=== PATIENT | male | born 1960 | race Caucasian/White ===

== ENCOUNTER 2016-10-03 17:33 | Inpatient (IN) | payer MEDICAID ==
[~2016-10-03] VITALS: Ht 190.5 cm; Wt 106.5 kg
[~2016-10-03 17:33] MED LIST: ATEN-60 PO; BENA5TAB14 PO; GLIP-116; INSLISPI SC; LISI-206; METFORMIN 500MG TABLETS; PROVASTATIN; [UNRECOGNIZED DRUG - CODE] PO; [UNRECOGNIZED DRUG - CODE] TD
[2016-10-03] MEDS ORDERED: VANCOMYCIN 1GM/250ML D5W 250 ML IV ONE (22:15)
[2016-10-03] MEDS ORDERED: cefTRIAXone 1GM/50ML D5W 50 ML IV ONE (22:15)
[2016-10-03] MEDS ORDERED: ACETAMINOPHEN 325 MG TAB PO ONE (22:15)
[2016-10-03] MEDS ORDERED: HYDROmorphone HCL 2 MG/ML VL IV ONE (22:15)
[2016-10-03] MEDS ORDERED: ONDANSETRON HCL 4 MG/2 ML VIAL IV ONE (22:15)
[2016-10-03 23:16] LABS: Basophils # (auto) 0 uL; Basophils % (auto) 0.2 % (0.0-2.0); Eosinophils # (auto) 0 uL; Eosinophils % (auto) 0.1 % (0.0-7.0); Hematocrit 44.7 % (41.0-53.0); Hemoglobin 14.9 g/dL (13.5-17.5); Lymphocytes # (auto) 1.2 uL; Mean Corpuscular Hemoglobin 28.9 pg (28.0-32.0); Mean Corpuscular Hgb Conc. 33.3 g/dL (32.0-36.0); Mean Corpuscular Volume 86.8 fL (80.0-100.0); Mean Platelet Volume 8.8 fL (7.4-10.4); Monocytes # (auto) 0.9 uL; Monocytes % (auto) 7.5 % (0.0-12.0); Neutrophils % (auto) 82.2 % (37.0-80.0); Platelet Count (auto) 199 10^3/uL (140-450); Red Cell Distribution Width 13.4 % (11.6-16.0); White Blood Cell 12.2 10^3/uL (4.4-10.8)
[2016-10-03] MEDS ORDERED: PRAV20TA3 PO (23:19)
[2016-10-03] MEDS ORDERED: TERA10CA36 PO (23:19)
[2016-10-03 23:20] LABS: Albumin 3.3 g/dL (3.4-5.0); BUN/Creatinine Ratio 13.4; Calcium 8.7 mg/dL (8.5-10.1); Potassium 4.6 mmol/L (3.5-5.1)
[2016-10-03 23:23] LABS: Bilirubin, Total 0.6 mg/dL (0.2-1.0); Total Protein 7.8 g/dL (6.4-8.2)
[2016-10-04] VITALS (7 sets, daily range): BP systolic 106–119; BP diastolic 58–75
[2016-10-04] MEDS ORDERED: DEXTROSE (50%) 50ML SYRG IV PRN (01:30)
[2016-10-04] MEDS ORDERED: HYDROcodone-ACET 5/325MG TAB PO PRN (01:30)
[2016-10-04] MEDS ORDERED: MORPHINE SULF INJ 2 MG/ML SYRINGE 1ML IV PRN (01:30)
[2016-10-04] MEDS ORDERED: ONDANSETRON HCL 4 MG/2 ML VIAL IV PRN (01:30)
[2016-10-04] MEDS: ACCU-CHEK COMFORT CURVE STRIP VI SCH ×3 (06:00→18:00)
[2016-10-04] MEDS ORDERED: ATEN-60 PO (06:43)
[2016-10-04] MEDS ORDERED: LISI10TA6 PO (06:43)
[2016-10-04] MEDS: InsuLIN REG 1unit/0.01ml Soln (100units/ml) SC SCH ×3 (07:36→19:31)
[2016-10-04 09:23] LABS: Albumin 2.7 g/dL (3.4-5.0); BUN/Creatinine Ratio 18.8; Bilirubin, Total 0.6 mg/dL (0.2-1.0); Calcium 8.1 mg/dL (8.5-10.1); Potassium 3.6 mmol/L (3.5-5.1); Total Protein 6.3 g/dL (6.4-8.2)
[2016-10-04] MEDS: ASPirin 325 MG TAB PO SCH (09:38)
[2016-10-04] MEDS: ENOXAPARIN SOD 40 MG/0.4 ML SYRINGE SC SCH (09:39)
[2016-10-04] MEDS: FAMOTIDINE 20 MG TAB PO SCH ×2 (09:42→21:39)
[2016-10-04] MEDS: ATENOLOL 25 MG TAB PO SCH (09:45)
[2016-10-04] MEDS: LISINOPRIL 10 MG TAB PO SCH (09:46)
[2016-10-04] MEDS ORDERED: VANCOMYCIN PER PHARMACY 0 MG IV SCH (12:00)
[2016-10-04] MEDS: VANCOMYCIN 1,250 MG in D5W 5% 250 ML IV SCH ×2 (12:35→23:37)
[2016-10-04] MEDS: HYDROmorphone HCL 2 MG/ML VL IV PRN (19:50)
[2016-10-04 19:54] LABS: INR 1.25 (0.9-1.15); Prothrombin Time 12.9 sec (9.37-12.3)
[2016-10-04] MEDS: cefTRIAXone 1GM/50ML D5W 50 ML IV SCH (21:37)
[2016-10-04] MEDS: PRAVASTATIN SODIUM 20 MG TAB PO SCH (21:38)
[2016-10-04] MEDS: TERAZOSIN HCL 5 MG CAP PO SCH (21:38)
[2016-10-05] MEDS: TEMAZEPAM 15 MG CAP PO PRN ×2 (00:16→21:22)
[2016-10-05] MEDS: InsuLIN REG 1unit/0.01ml Soln (100units/ml) SC SCH ×4 (00:41→18:17)
[2016-10-05 02:09] VITALS: BP 107/58
[2016-10-05] MEDS: ACCU-CHEK COMFORT CURVE STRIP VI SCH ×4 (05:39→18:17)
[2016-10-05] MEDS: ASPirin 325 MG TAB PO SCH (10:00)
[2016-10-05] MEDS: ENOXAPARIN SOD 40 MG/0.4 ML SYRINGE SC SCH (10:00)
[2016-10-05] MEDS: ATENOLOL 25 MG TAB PO SCH (10:00)
[2016-10-05] MEDS: LISINOPRIL 10 MG TAB PO SCH (10:00)
[2016-10-05] MEDS: FAMOTIDINE 20 MG TAB PO SCH ×2 (10:00→21:19)
[2016-10-05] MEDS ORDERED: BUPIVACAINE 0.75% INJ 10ML MPV SDV IJ ONE (11:55)
[2016-10-05] MEDS: VANCOMYCIN 1,250 MG in D5W 5% 250 ML IV SCH ×2 (12:00→23:33)
[2016-10-05] MEDS ORDERED: ceFAZolin 1GM/50ML D5W 50 ML IV ONE (12:37)
[2016-10-05] MEDS ORDERED: ceFAZolin 1GM VL ONE (13:21)
[2016-10-05] MEDS ORDERED: ROPIVACAINE 0.5% (5MG/ML) 20ML AMPULE IJ ONE (13:22)
[2016-10-05] MEDS ORDERED: fentaNYL CITRATE 100 MCG/2 ML VL ONE (13:24)
[2016-10-05] MEDS ORDERED: PROPOFOL 10 MG/ML 20 ML IV ONE (13:24)
[2016-10-05] MEDS ORDERED: MIDAZOLAM HCL 1MG/1ML-2 ML VIAL ONE (13:24)
[2016-10-05] MEDS ORDERED: HYDROmorphone HCL 2 MG/ML VL IV PRN (14:15)
[2016-10-05] MEDS ORDERED: ePHEDrine SULFATE 50 MG/ML AMP IV PRN (14:15)
[2016-10-05] MEDS ORDERED: hydrALAZINE HCL 20 MG/ML VL IV PRN (14:15)
[2016-10-05] MEDS ORDERED: ONDANSETRON HCL 4 MG/2 ML VIAL IV ONE (14:15)
[2016-10-05 15:58] LABS: Basophils # (auto) 0 uL; Basophils % (auto) 0.3 % (0.0-2.0); Eosinophils # (auto) 0.1 uL; Eosinophils % (auto) 0.9 % (0.0-7.0); Hematocrit 41.6 % (41.0-53.0); Lymphocytes # (auto) 1.9 uL; Lymphocytes % (auto) 18.1 % (10.0-50.0); Mean Corpuscular Hemoglobin 28.9 pg (28.0-32.0); Mean Corpuscular Hgb Conc. 33.6 g/dL (32.0-36.0); Mean Platelet Volume 8.5 fL (7.4-10.4); Monocytes # (auto) 1.1 uL; Monocytes % (auto) 10.1 % (0.0-12.0); Neutrophils # (auto) 7.5 uL; Neutrophils % (auto) 70.6 % (37.0-80.0); Platelet Count (auto) 202 10^3/uL (140-450); Red Cell Distribution Width 13.2 % (11.6-16.0); White Blood Cell 10.6 10^3/uL (4.4-10.8)
[2016-10-05 16:20] LABS: Partial Thromboplastin Time 28.5 sec (22.64-33.71)
[2016-10-05 16:36] LABS: INR 1.27 (0.9-1.15); Prothrombin Time 13.1 sec (9.37-12.3)
[2016-10-05 16:42] LABS: Potassium 4.4 mmol/L (3.5-5.1)
[2016-10-05 16:44] LABS: Albumin 2.7 g/dL (3.4-5.0); BUN/Creatinine Ratio 14.3; Bilirubin, Total 0.5 mg/dL (0.2-1.0); Calcium 8.1 mg/dL (8.5-10.1); Total Protein 6.8 g/dL (6.4-8.2)
[2016-10-05 17:06] VITALS: BP 110/66
[2016-10-05] MEDS: HYDROmorphone HCL 2 MG/ML VL IV PRN (20:27)
[2016-10-05] MEDS: PRAVASTATIN SODIUM 20 MG TAB PO SCH (21:19)
[2016-10-05] MEDS: cefTRIAXone 1GM/50ML D5W 50 ML IV SCH (21:19)
[2016-10-05] MEDS: TERAZOSIN HCL 5 MG CAP PO SCH (21:20)
[2016-10-05] MEDS: ACETAMINOPHEN 325 MG TAB PO PRN (21:20)
[2016-10-05 22:12] VITALS: BP 132/70
[2016-10-06] MEDS: InsuLIN REG 1unit/0.01ml Soln (100units/ml) SC SCH ×4 (00:34→18:18)
[2016-10-06] MEDS: ACCU-CHEK COMFORT CURVE STRIP VI SCH ×4 (00:35→17:59)
[2016-10-06 05:08] VITALS: BP 129/78
[2016-10-06 06:49] LABS: Basophils # (auto) 0 uL; Basophils % (auto) 0.3 % (0.0-2.0); Eosinophils # (auto) 0.2 uL; Eosinophils % (auto) 1.7 % (0.0-7.0); Hematocrit 41.2 % (41.0-53.0); Hemoglobin 13.7 g/dL (13.5-17.5); Lymphocytes # (auto) 2.3 uL; Lymphocytes % (auto) 23.9 % (10.0-50.0); Mean Corpuscular Hemoglobin 28.8 pg (28.0-32.0); Mean Corpuscular Hgb Conc. 33.3 g/dL (32.0-36.0); Mean Corpuscular Volume 86.6 fL (80.0-100.0); Mean Platelet Volume 8.9 fL (7.4-10.4); Monocytes # (auto) 1.2 uL; Monocytes % (auto) 12.3 % (0.0-12.0); Neutrophils # (auto) 5.9 uL; Neutrophils % (auto) 61.8 % (37.0-80.0); Platelet Count (auto) 202 10^3/uL (140-450); White Blood Cell 9.5 10^3/uL (4.4-10.8)
[2016-10-06 07:24] LABS: Albumin 2.5 g/dL (3.4-5.0); BUN/Creatinine Ratio 13.6; Calcium 8.1 mg/dL (8.5-10.1)
[2016-10-06 07:36] LABS: Bilirubin, Total 0.5 mg/dL (0.2-1.0); Total Protein 6.5 g/dL (6.4-8.2)
[2016-10-06 08:36] VITALS: BP 116/62
[2016-10-06] MEDS: ASPirin 325 MG TAB PO SCH (09:16)
[2016-10-06] MEDS: ATENOLOL 25 MG TAB PO SCH (09:34)
[2016-10-06] MEDS: LISINOPRIL 10 MG TAB PO SCH (09:34)
[2016-10-06] MEDS: FAMOTIDINE 20 MG TAB PO SCH ×2 (09:34→21:57)
[2016-10-06] MEDS: ENOXAPARIN SOD 40 MG/0.4 ML SYRINGE SC SCH ×2 (09:35→10:55)
[2016-10-06 11:19] VITALS: BP 165/89
[2016-10-06] MEDS: VANCOMYCIN 1,250 MG in D5W 5% 250 ML IV SCH (12:32)
[2016-10-06 16:18] VITALS: BP 131/77
[2016-10-06] MEDS: DOCUSATE SOD 100 MG CAP PO PRN (18:34)
[2016-10-06 21:26] VITALS: BP 144/79
[2016-10-06] MEDS: TERAZOSIN HCL 5 MG CAP PO SCH (21:56)
[2016-10-06] MEDS: TEMAZEPAM 15 MG CAP PO PRN (21:57)
[2016-10-06] MEDS: ACETAMINOPHEN 325 MG TAB PO PRN (21:57)
[2016-10-06] MEDS: cefTRIAXone 1GM/50ML D5W 50 ML IV SCH (21:57)
[2016-10-06] MEDS: PRAVASTATIN SODIUM 20 MG TAB PO SCH (21:57)
[2016-10-06] MEDS: INSULIN DETEMIR(LEVEMIR) 1unit/0.01ml Soln (100units/ml) SC SCH (22:12)
[2016-10-07] MEDS: InsuLIN REG 1unit/0.01ml Soln (100units/ml) SC SCH ×5 (00:48→23:31)
[2016-10-07] MEDS: VANCOMYCIN 1,250 MG in D5W 5% 250 ML IV SCH ×2 (02:39→16:54)
[2016-10-07] MEDS: ACCU-CHEK COMFORT CURVE STRIP VI SCH ×5 (06:25→23:25)
[2016-10-07 06:56] LABS: Calcium 8.2 mg/dL (8.5-10.1); Potassium 3.7 mmol/L (3.5-5.1)
[2016-10-07 06:57] LABS: BUN/Creatinine Ratio 18.1
[2016-10-07 08:00] VITALS: BP 109/60
[2016-10-07 09:13] VITALS: BP 109/60
[2016-10-07] MEDS: ASPirin 325 MG TAB PO SCH (09:41)
[2016-10-07] MEDS: FAMOTIDINE 20 MG TAB PO SCH ×2 (09:41→22:55)
[2016-10-07] MEDS: LISINOPRIL 10 MG TAB PO SCH (09:43)
[2016-10-07] MEDS: ATENOLOL 25 MG TAB PO SCH (09:44)
[2016-10-07] MEDS: ENOXAPARIN SOD 40 MG/0.4 ML SYRINGE SC SCH (09:44)
[2016-10-07 12:44] VITALS: BP 116/82
[2016-10-07 16:57] VITALS: BP 105/69
[2016-10-07 20:00] VITALS: BP 129/79
[2016-10-07 22:00] VITALS: BP 129/79
[2016-10-07] MEDS: cefTRIAXone 1GM/50ML D5W 50 ML IV SCH (22:55)
[2016-10-07] MEDS: TERAZOSIN HCL 5 MG CAP PO SCH (22:55)
[2016-10-07] MEDS: PRAVASTATIN SODIUM 20 MG TAB PO SCH (22:58)
[2016-10-07] MEDS: INSULIN DETEMIR(LEVEMIR) 1unit/0.01ml Soln (100units/ml) SC SCH (23:30)
[2016-10-08] MEDS: VANCOMYCIN 1,250 MG in D5W 5% 250 ML IV SCH ×2 (02:57→15:23)
[2016-10-08 05:01] VITALS: BP 96/63
[2016-10-08] MEDS: ACCU-CHEK COMFORT CURVE STRIP VI SCH ×4 (06:23→23:56)
[2016-10-08] MEDS: InsuLIN REG 1unit/0.01ml Soln (100units/ml) SC SCH ×4 (06:25→23:59)
[2016-10-08 07:08] LABS: Basophils # (auto) 0 uL; Basophils % (auto) 0.5 % (0.0-2.0); Eosinophils # (auto) 0.3 uL; Eosinophils % (auto) 3.2 % (0.0-7.0); Hematocrit 42.4 % (41.0-53.0); Hemoglobin 14.2 g/dL (13.5-17.5); Lymphocytes # (auto) 2.6 uL; Mean Corpuscular Hgb Conc. 33.4 g/dL (32.0-36.0); Mean Corpuscular Volume 86.6 fL (80.0-100.0); Mean Platelet Volume 8.4 fL (7.4-10.4); Monocytes # (auto) 0.9 uL; Monocytes % (auto) 10.8 % (0.0-12.0); Neutrophils # (auto) 4.8 uL; Neutrophils % (auto) 55.5 % (37.0-80.0); Platelet Count (auto) 217 10^3/uL (140-450); Red Cell Distribution Width 12.6 % (11.6-16.0); White Blood Cell 8.7 10^3/uL (4.4-10.8)
[2016-10-08 07:33] LABS: Albumin 2.6 g/dL (3.4-5.0); Bilirubin, Total 0.3 mg/dL (0.2-1.0); Total Protein 6.5 g/dL (6.4-8.2)
[2016-10-08 09:50] VITALS: BP 120/63
[2016-10-08] MEDS: FAMOTIDINE 20 MG TAB PO SCH ×2 (10:00→22:33)
[2016-10-08] MEDS: ASPirin 325 MG TAB PO SCH (10:22)
[2016-10-08] MEDS: ATENOLOL 25 MG TAB PO SCH (10:23)
[2016-10-08] MEDS: LISINOPRIL 10 MG TAB PO SCH (10:23)
[2016-10-08] MEDS: ENOXAPARIN SOD 40 MG/0.4 ML SYRINGE SC SCH (10:24)
[2016-10-08] MEDS: DOCUSATE SOD 100 MG CAP PO PRN (10:45)
[2016-10-08 14:47] VITALS: BP 99/53
[2016-10-08 17:19] VITALS: BP 129/78
[2016-10-08 21:30] VITALS: BP 156/76
[2016-10-08] MEDS: PRAVASTATIN SODIUM 20 MG TAB PO SCH (22:33)
[2016-10-08] MEDS: cefTRIAXone 1GM/50ML D5W 50 ML IV SCH (22:33)
[2016-10-08] MEDS: TERAZOSIN HCL 5 MG CAP PO SCH (22:34)
[2016-10-08] MEDS: INSULIN DETEMIR(LEVEMIR) 1unit/0.01ml Soln (100units/ml) SC SCH (22:35)
[2016-10-09] MEDS: VANCOMYCIN 1,250 MG in D5W 5% 250 ML IV SCH ×2 (03:06→18:01)
[2016-10-09 05:00] VITALS: BP 114/55
[2016-10-09] MEDS: InsuLIN REG 1unit/0.01ml Soln (100units/ml) SC SCH ×3 (06:18→18:17)
[2016-10-09] MEDS: ACCU-CHEK COMFORT CURVE STRIP VI SCH ×3 (06:18→18:17)
[2016-10-09 08:00] VITALS: BP 117/71
[2016-10-09 09:04] VITALS: BP 117/71
[2016-10-09] MEDS: FAMOTIDINE 20 MG TAB PO SCH ×2 (10:00→22:20)
[2016-10-09] MEDS: ASPirin 325 MG TAB PO SCH (14:43)
[2016-10-09] MEDS: LISINOPRIL 10 MG TAB PO SCH (14:43)
[2016-10-09] MEDS: ATENOLOL 25 MG TAB PO SCH (14:44)
[2016-10-09] MEDS: ENOXAPARIN SOD 40 MG/0.4 ML SYRINGE SC SCH (14:44)
[2016-10-09 16:50] VITALS: BP 127/80
[2016-10-09] MEDS: glipiZIDE 5 MG TAB PO SCH (17:55)
[2016-10-09 22:00] VITALS: BP 119/72
[2016-10-09] MEDS: TERAZOSIN HCL 5 MG CAP PO SCH (22:19)
[2016-10-09] MEDS: cefTRIAXone 1GM/50ML D5W 50 ML IV SCH (22:19)
[2016-10-09] MEDS: INSULIN DETEMIR(LEVEMIR) 1unit/0.01ml Soln (100units/ml) SC SCH (22:20)
[2016-10-09] MEDS: PRAVASTATIN SODIUM 20 MG TAB PO SCH (22:20)
[2016-10-10] MEDS: ACCU-CHEK COMFORT CURVE STRIP VI SCH ×3 (00:11→12:08)
[2016-10-10] MEDS: InsuLIN REG 1unit/0.01ml Soln (100units/ml) SC SCH ×3 (00:12→12:08)
[2016-10-10] MEDS: VANCOMYCIN 1,250 MG in D5W 5% 250 ML IV SCH (03:13)
[2016-10-10 05:00] VITALS: BP 112/59
[2016-10-10] MEDS: glipiZIDE 5 MG TAB PO SCH (06:00)
[2016-10-10 07:55] VITALS: BP 117/64
[2016-10-10 08:00] VITALS: BP 117/64
[2016-10-10] MEDS: FAMOTIDINE 20 MG TAB PO SCH (10:00)
[2016-10-10] MEDS: ATENOLOL 25 MG TAB PO SCH (10:20)
[2016-10-10] MEDS: ASPirin 325 MG TAB PO SCH (10:20)
[2016-10-10] MEDS: ENOXAPARIN SOD 40 MG/0.4 ML SYRINGE SC SCH (10:20)
[2016-10-10] MEDS: LISINOPRIL 10 MG TAB PO SCH (10:21)
[2016-10-10 10:48] LABS: Basophils # (auto) 0 uL; Basophils % (auto) 0.3 % (0.0-2.0); Eosinophils # (auto) 0.3 uL; Hematocrit 42.7 % (41.0-53.0); Hemoglobin 14.1 g/dL (13.5-17.5); Lymphocytes # (auto) 2.3 uL; Lymphocytes % (auto) 27.3 % (10.0-50.0); Mean Corpuscular Hemoglobin 28.7 pg (28.0-32.0); Mean Corpuscular Hgb Conc. 33.1 g/dL (32.0-36.0); Mean Corpuscular Volume 86.8 fL (80.0-100.0); Mean Platelet Volume 8.2 fL (7.4-10.4); Monocytes # (auto) 0.8 uL; Monocytes % (auto) 8.9 % (0.0-12.0); Neutrophils # (auto) 5.1 uL; Neutrophils % (auto) 60.5 % (37.0-80.0); Platelet Count (auto) 236 10^3/uL (140-450); Red Cell Distribution Width 12.7 % (11.6-16.0); White Blood Cell 8.4 10^3/uL (4.4-10.8)
[2016-10-10 11:15] LABS: Albumin 2.8 g/dL (3.4-5.0); BUN/Creatinine Ratio 16.5; Bilirubin, Total 0.4 mg/dL (0.2-1.0); Calcium 8.4 mg/dL (8.5-10.1); Potassium 4.5 mmol/L (3.5-5.1); Total Protein 6.8 g/dL (6.4-8.2)
[2016-10-10 11:54] VITALS: BP 125/69
[2016-10-10 13:50] VITALS: BP 117/64
== END 2016-10-10 17:10 | disposition home or self-care (01) | DRG 710 ==
LOC: ER 17:35 → EAST 17:36
PROVIDERS: ADMIT Nurse Practitioner; ATTEND Internal Medicine
PROC: 0HRNXK3 Replacement of Left Foot Skin with Nonautologous Tissue Substitute, Full Thickness, External Approach (ICD-10-PCS; 2016-10-05)
PROC: 0JBR0ZZ Excision of Left Foot Subcutaneous Tissue and Fascia, Open Approach (ICD-10-PCS; 2016-10-05)
PROC: 0Y9N3ZZ Drainage of Left Foot, Percutaneous Approach (ICD-10-PCS; principal; 2016-10-05 13:20)
DX: A41.9 Sepsis, unspecified organism (principal); E44.0 Moderate protein-calorie malnutrition; E10.621 Type 1 diabetes mellitus with foot ulcer; E10.40 Type 1 diabetes mellitus with diabetic neuropathy, unspecified; L03.116 Cellulitis of left lower limb; E44.1 Mild protein-calorie malnutrition; E10.65 Type 1 diabetes mellitus with hyperglycemia; L97.529 Non-pressure chronic ulcer of other part of left foot with unspecified severity; E78.5 Hyperlipidemia, unspecified; I25.10 Atherosclerotic heart disease of native coronary artery without angina pectoris; B19.20 Unspecified viral hepatitis C without hepatic coma; B95.2 Enterococcus as the cause of diseases classified elsewhere; B95.8 Unspecified staphylococcus as the cause of diseases classified elsewhere; F17.210 Nicotine dependence, cigarettes, uncomplicated; I10 Essential (primary) hypertension; F41.9 Anxiety disorder, unspecified; L02.612 Cutaneous abscess of left foot; Z95.5 Presence of coronary angioplasty implant and graft; I25.2 Old myocardial infarction; Z88.1 Allergy status to other antibiotic agents; Z91.19 Patient's noncompliance with other medical treatment and regimen; Z79.4 Long term (current) use of insulin; Z80.9 Family history of malignant neoplasm, unspecified; Z88.5 Allergy status to narcotic agent; Z68.29 Body mass index [BMI] 29.0-29.9, adult
CPT/HCPCS: 36415; 71020; 73630; 73700; 80048; 80053; 80202; 82962; 83036; 85025; 85610; 85730; 86803; 87040; 87070; 87075; 87077; 87081; 87186; 87205; 93005; 93971; 96365; 96367; 96375; J0690; J0696; J1815; J2250; J2405; J2704; J3490; J7060

== ENCOUNTER 2018-08-05 19:07 | Inpatient (IN) | payer MEDICAID | END 2018-08-11 03:06 | disposition short-term general hospital (02) | LOC: TELE-WESTW 08-08 17:07 → ER 19:07 → TELE-WESTW 23:29 | PROC: 4A023N7 Measurement of Cardiac Sampling and Pressure, Left Heart, Percutaneous Approach (ICD-10-PCS; principal; ~2018-08-05) | PROC: B2111ZZ Fluoroscopy of Multiple Coronary Arteries using Low Osmolar Contrast (ICD-10-PCS; ~2018-08-05) | PROC: B2151ZZ Fluoroscopy of Left Heart using Low Osmolar Contrast (ICD-10-PCS; ~2018-08-05) | DX: I25.10 Atherosclerotic heart disease of native coronary artery without angina pectoris (principal); S72.002A Fracture of unspecified part of neck of left femur, initial encounter for closed fracture; E44.0 Moderate protein-calorie malnutrition; E10.40 Type 1 diabetes mellitus with diabetic neuropathy, unspecified; E10.65 Type 1 diabetes mellitus with hyperglycemia; I42.0 Dilated cardiomyopathy; I42.9 Cardiomyopathy, unspecified; E87.1 Hypo-osmolality and hyponatremia; I10 Essential (primary) hypertension; I25.2 Old myocardial infarction; Y92.000 Kitchen of unspecified non-institutional (private) residence as the place of occurrence of the external cause; I73.9 Peripheral vascular disease, unspecified ==

== ENCOUNTER 2018-09-16 21:45 | Inpatient (IN) | payer MEDICAID | END 2018-10-20 00:11 | LOC: ICU WEST 09-17 19:58 → TELE 09-17 06:37 → ER 21:45 → TELE-EAST 09-17 20:07 | PROC: 5A1955Z Respiratory Ventilation, Greater than 96 Consecutive Hours (ICD-10-PCS; principal; 2018-10-10 15:35) | PROC: 0BH17EZ Insertion of Endotracheal Airway into Trachea, Via Natural or Artificial Opening (ICD-10-PCS; 2018-10-10 15:35) | PROC: 0B110F4 Bypass Trachea to Cutaneous with Tracheostomy Device, Open Approach (ICD-10-PCS; 2018-10-10 15:35) | PROC: 0DH63UZ Insertion of Feeding Device into Stomach, Percutaneous Approach (ICD-10-PCS; 2018-10-10 15:35) | PROC: 3E0G76Z Introduction of Nutritional Substance into Upper GI, Via Natural or Artificial Opening (ICD-10-PCS; 2018-10-10 15:35) | DX: A41.9 Sepsis, unspecified organism (principal); R65.21 Severe sepsis with septic shock; I46.9 Cardiac arrest, cause unspecified; E43 Unspecified severe protein-calorie malnutrition; J15.0 Pneumonia due to Klebsiella pneumoniae; J95.851 Ventilator associated pneumonia; K72.00 Acute and subacute hepatic failure without coma; N17.0 Acute kidney failure with tubular necrosis; G93.1 Anoxic brain damage, not elsewhere classified; K26.9 Duodenal ulcer, unspecified as acute or chronic, without hemorrhage or perforation; J96.01 Acute respiratory failure with hypoxia; J96.02 Acute respiratory failure with hypercapnia; E11.65 Type 2 diabetes mellitus with hyperglycemia; E87.1 Hypo-osmolality and hyponatremia; N39.0 Urinary tract infection, site not specified; E78.5 Hyperlipidemia, unspecified; G45.9 Transient cerebral ischemic attack, unspecified; M19.90 Unspecified osteoarthritis, unspecified site; E11.21 Type 2 diabetes mellitus with diabetic nephropathy; E83.39 Other disorders of phosphorus metabolism; E87.2 Acidosis; E87.5 Hyperkalemia; I25.5 Ischemic cardiomyopathy; N18.9 Chronic kidney disease, unspecified; E11.22 Type 2 diabetes mellitus with diabetic chronic kidney disease; E87.0 Hyperosmolality and hypernatremia; G93.41 Metabolic encephalopathy; I13.0 Hypertensive heart and chronic kidney disease with heart failure and stage 1 through stage 4 chronic kidney disease, or unspecified chronic kidney disease; I50.9 Heart failure, unspecified; Z99.11 Dependence on respirator [ventilator] status; E87.6 Hypokalemia; I25.10 Atherosclerotic heart disease of native coronary artery without angina pectoris; D63.1 Anemia in chronic kidney disease; I13.2 Hypertensive heart and chronic kidney disease with heart failure and with stage 5 chronic kidney disease, or end stage renal disease; K29.80 Duodenitis without bleeding; K29.70 Gastritis, unspecified, without bleeding; N18.6 End stage renal disease ==